=== PATIENT | male | born 1945 | race Caucasian/White ===

== ENCOUNTER 2021-09-25 17:37 | Inpatient (IN) ==
[2021-09-25] MEDS ORDERED: Aspirin 325 MG TABLET PO ONE (18:13)
[2021-09-25 19:35] LABS: Basophils # 0.1 K/mcL (0.0-0.2); Eosinophils # 0.1 K/mcL (0.0-0.6); Eosinophils % 2.1 %; Hematocrit 42.8 % (37.5-50.1); Hemoglobin 14.8 g/dL (12.9-16.9); Immature Granulocytes % 0.2 % (0-4); Lymphocytes # 2.2 K/mcL (0.6-4.6); Lymphocytes % 36.6 %; Mean Corpuscular HGB Conc 34.6 g/dL (31.6-35.5); Mean Corpuscular Hemoglobin 33.6 pg (28.0-33.3); Mean Corpuscular Volume 97.3 fL (83.0-100.0); Mean Platelet Volume 9.9 fL (9.4-12.4); Monocytes # 0.5 K/mcL (0.0-1.3); Monocytes % 8.2 %; Neutrophils # 3.2 K/mcL (1.6-8.9); Platelet Count 164 K/mcL (140-400); Red Cell Distribution Width 12.3 % (11.5-14.5); Segmented Neutrophils % 51.9 %; White Blood Count 6.1 K/mcL (4.3-11.1)
[2021-09-25 20:01] LABS: BUN/Creatinine Ratio 16 (6-26); Blood Urea Nitrogen 14 mg/dL (8-23); Calcium 9.5 mg/dL (8.6-10.3); Carbon Dioxide 31 mEq/L (23-29); Chloride 102 mEq/L (98-107); Glucose 108 mg/dL (70-105); Osmolality,Calculated 293 (280-300); Potassium 4.2 mEq/L (3.5-5.1); Sodium 141 mEq/L (136-145); Troponin I < 0.03 ng/mL (< 0.04); eGFR For African Americans > 60 (> 60); eGFR For Non-African Americans > 60 (> 60)
[2021-09-25] MEDS ORDERED: Naloxone 0.4 MG/ML INJ IVP PRN (22:22)
[2021-09-25] MEDS ORDERED: Melatonin 3 MG TABLET PO PRN (22:22)
[2021-09-26] MEDS ORDERED: *HR* Dextrose 50 % in Water (Syg) 50 ML SYRINGE IVP PRN (00:05)
[2021-09-26] MEDS ORDERED: D5% in Water 1,000 ML IVC PRN (00:05)
[2021-09-26] MEDS ORDERED: Dextrose Gel 15 GM/37.5 ML TUBE PO PRN ×2 (00:05)
[2021-09-26] MEDS ORDERED: tiZANidine 4 MG TABLET PO PRN (00:06)
[2021-09-26] MEDS ORDERED: diazePAM 5 MG TABLET PO PRN (00:07)
[2021-09-26 00:35] LABS: Hematocrit 39.3 % (37.5-50.1); Hemoglobin 14.1 g/dL (12.9-16.9); Mean Corpuscular HGB Conc 35.9 g/dL (31.6-35.5); Mean Corpuscular Hemoglobin 34.1 pg (28.0-33.3); Mean Corpuscular Volume 95.2 fL (83.0-100.0); Mean Platelet Volume 9.5 fL (9.4-12.4); Platelet Count 147 K/mcL (140-400); Red Blood Count 4.13 M/mcL (4.19-5.50); Red Cell Distribution Width 12.3 % (11.5-14.5)
[2021-09-26 00:51] LABS: BUN/Creatinine Ratio 17 (6-26); Blood Urea Nitrogen 13 mg/dL (8-23); Calcium 8.7 mg/dL (8.6-10.3); Carbon Dioxide 29 mEq/L (23-29); Chloride 105 mEq/L (98-107); Glucose 129 mg/dL (70-105); Magnesium 1.8 mg/dL (1.6-2.6); Osmolality,Calculated 290 (280-300); Potassium 3.8 mEq/L (3.5-5.1); Sodium 139 mEq/L (136-145); eGFR For African Americans > 60 (> 60); eGFR For Non-African Americans > 60 (> 60)
[2021-09-26] MEDS ORDERED: Nitroglycerin 0.4 MG TAB.SUBL SL PRN (00:54)
[2021-09-26] MEDS: *HR* OxyCODONE Immed Rel 15 MG TABLET PO PRN ×2 (01:11→07:36)
[2021-09-26] MEDS: Insulin LISPRO 300 UNITS/3 ML VIAL SUBQ SCH ×4 (05:19→23:37)
[2021-09-26] MEDS: *HR* Heparin 5,000 UNIT/ML VIAL SQ SCH ×2 (05:23→17:09)
[2021-09-26] MEDS ORDERED: Regadenoson 0.4 MG/5 ML SYRINGE IVP ONE ×2 (06:11→12:12)
[2021-09-26] MEDS: lisinopriL 20 MG TABLET PO SCH ×2 (07:36→20:03)
[2021-09-26] MEDS: Aspirin 81 MG TAB.CHEW PO SCH (07:36)
[2021-09-26] MEDS ORDERED: Perflutren Lipid Microsphere 1.3 ML in 0.9 % Sodium Chloride 8.7 ML IVP PRN (16:50)
[2021-09-27] MEDS: Insulin LISPRO 300 UNITS/3 ML VIAL SUBQ SCH ×3 (05:19→16:11)
[2021-09-27] MEDS: *HR* Heparin 5,000 UNIT/ML VIAL SQ SCH ×2 (05:22→15:47)
[2021-09-27] MEDS: Aspirin 81 MG TAB.CHEW PO SCH (07:53)
[2021-09-27] MEDS: lisinopriL 20 MG TABLET PO SCH ×2 (07:53→20:17)
[2021-09-27] MEDS ORDERED: *HR* Midazolam HCl 2 MG/2 ML VIAL ONE ×2 (13:38→14:44)
[2021-09-27] MEDS ORDERED: *HR* FentaNYL (PF) 100 MCG/2 ML VIAL ONE ×2 (13:38→14:44)
[2021-09-27] MEDS ORDERED: ISOVUE-370 200 ML INFUS..BTL ONE ×2 (13:39→15:17)
[2021-09-27] MEDS ORDERED: Heparin 1,000 UNITS/500 mL 500 ML ONE (13:39)
[2021-09-27] MEDS ORDERED: *HR* Heparin 10,000 UNIT/10 ML VIAL ONE ×2 (13:39→15:17)
[2021-09-27] MEDS ORDERED: 0.9 % Sodium Chloride 2,000 ML ONE (13:39)
[2021-09-27] MEDS: *HR* OxyCODONE Immed Rel 15 MG TABLET PO PRN (20:19)
[2021-09-28] MEDS: Insulin LISPRO 300 UNITS/3 ML VIAL SUBQ SCH ×2 (00:31→06:21)
[2021-09-28 03:06] LABS: Hematocrit 38.5 % (37.5-50.1); Hemoglobin 13.5 g/dL (12.9-16.9)
[2021-09-28 03:26] LABS: BUN/Creatinine Ratio 20 (6-26); Blood Urea Nitrogen 17 mg/dL (8-23); eGFR For African Americans > 60 (> 60); eGFR For Non-African Americans > 60 (> 60)
[2021-09-28 03:43] LABS: Troponin I 0.04 ng/mL (< 0.04)
[2021-09-28] MEDS: *HR* OxyCODONE Immed Rel 15 MG TABLET PO PRN (06:09)
[2021-09-28] MEDS: *HR* Heparin 5,000 UNIT/ML VIAL SQ SCH (06:10)
[2021-09-28 06:57] VITALS: BP 144/68; PULSE 51; TEMP 97.9; O2SAT 95
[2021-09-28] MEDS ORDERED: Insulin LISPRO 300 UNITS/3 ML VIAL SUBQ SCH (07:30)
[2021-09-28] MEDS: lisinopriL 20 MG TABLET PO SCH (07:51)
[2021-09-28] MEDS ORDERED: Aspirin 81 MG TAB.CHEW PO SCH (09:00)
== END 2021-09-28 10:57 | disposition home or self-care (01) | DRG 247 ==
LOC: 3BNU 17:37 → EMEROOARM 17:37 → SUATTDRO 22:29 → 3BNU 23:37
PROVIDERS: ADMIT Internal Medicine; ATTEND Internal Medicine